=== PATIENT | male | born 2000 | race Caucasian/White ===

== ENCOUNTER 2018-04-14 00:32 | Emergency (ER) | payer OTHER ==
[~2018-04-14] VITALS: Ht 165.1 cm; Wt 70.8 kg
[2018-04-14 00:37] VITALS: Ht 165.1 cm; Wt 70.8 kg
[2018-04-14 03:09] VITALS: BP 122/70
== END 2018-04-14 03:16 | disposition home or self-care (01) ==
LOC: ED 00:32
DX: F19.10 Other psychoactive substance abuse, uncomplicated (principal); F14.10 Cocaine abuse, uncomplicated

== ENCOUNTER 2018-06-21 17:17 | Emergency (ER) | payer OTHER ==
[~2018-06-21] VITALS: Ht 167.6 cm; Wt 70.8 kg
[2018-06-21 18:11] VITALS: Ht 167.6 cm; Wt 70.8 kg
[2018-06-21 20:12] VITALS: BP 109/69
== END 2018-06-21 20:12 | disposition home or self-care (01) ==
LOC: ED 17:17
DX: J02.9 Acute pharyngitis, unspecified (principal); F41.9 Anxiety disorder, unspecified; M79.10 Myalgia, unspecified site; R07.89 Other chest pain

== ENCOUNTER 2018-10-08 20:56 | Emergency (ER) | payer OTHER ==
[~2018-10-08] VITALS: Ht 167.6 cm; Wt 74.4 kg
[2018-10-08 21:04] VITALS: Ht 167.6 cm; Wt 74.4 kg
[2018-10-08 22:55] VITALS: BP 132/90
== END 2018-10-08 22:55 | disposition home or self-care (01) ==
LOC: ED 20:56
DX: R07.0 Pain in throat (principal); R03.0 Elevated blood-pressure reading, without diagnosis of hypertension; F41.0 Panic disorder [episodic paroxysmal anxiety]

== ENCOUNTER 2019-02-23 06:19 | Emergency (ER) | payer OTHER ==
[~2019-02-23] VITALS: Ht 167.6 cm; Wt 75.7 kg
[2019-02-23 06:26] VITALS: Ht 167.6 cm; Wt 75.7 kg
[2019-02-23 07:23] VITALS: BP 118/73
== END 2019-02-23 07:23 | disposition home or self-care (01) ==
LOC: ED 06:19
DX: F41.0 Panic disorder [episodic paroxysmal anxiety] (principal); K30 Functional dyspepsia
CPT/HCPCS: 82962